=== PATIENT | male | born 1990 | race Caucasian/White ===

== ENCOUNTER 2018-11-23 07:24 | Day surgery (SDC) | payer BC ==
[~2018-11-23] VITALS: Ht 172.7 cm; Wt 99.8 kg
[2018-11-23] MEDS ORDERED: PERCOCET 5/325M1 TAB PO (10:29)
[2018-11-23 12:50] VITALS: BP 108/62
== END 2018-11-23 11:31 | disposition home or self-care (01) | DRG 352 ==
LOC: ORM 07:24
PROVIDERS: ATTEND Surgery
PROC: 0YU54JZ Supplement Right Inguinal Region with Synthetic Substitute, Percutaneous Endoscopic Approach (ICD-10-PCS; principal; 2018-11-23)
DX: K40.90 Unilateral inguinal hernia, without obstruction or gangrene, not specified as recurrent (principal)
CPT/HCPCS: C1781; C9290; J0131; J2710

== ENCOUNTER 2019-01-24 05:53 | Day surgery (SDC) | payer BC ==
[~2019-01-24] VITALS: Ht 172.7 cm; Wt 95.3 kg
[~2019-01-24 05:53] MED LIST: PERCOCET 5/325M1 TAB PO
[2019-01-24 10:15] VITALS: BP 134/79
== END 2019-01-24 07:56 | disposition home or self-care (01) | DRG 74 ==
LOC: ORM 05:53
PROVIDERS: ATTEND Anesthesiology Pain Medicine
DX: G57.81 Other specified mononeuropathies of right lower limb (principal)